=== PATIENT | female | born 1940 | race Asian ===

== ENCOUNTER 2023-09-02 07:12 | Day surgery (SDC) | payer MEDICARE, OTHER ==
[~2023-09-02] VITALS: Ht 149.9 cm; Wt 68.1 kg
[~2023-09-02 07:12] MED LIST: AMLO2.5T96 PO; ASPI81TA39 PO; CLON0.1T13 PO; ENOX60SY28 SQ; ISOS30TA92 PO; MELO-107 PO; METF-1211 PO; SIMV-260 PO; SODIUM CHLORIDE 0.9% 1,000 ML ONE; WARF2.5T10 PO
[2023-09-02] MEDS ORDERED: MIDAZOLAM HCL 2 MG/2 ML VIAL ONE (07:38)
[2023-09-02] MEDS ORDERED: FentaNYL CITRATE PF 100 MCG/2 ML VIAL ONE (07:38)
[2023-09-02] MEDS: SODIUM CHLORIDE 0.9% 1,000 ML IV ONE (08:50)
[2023-09-02 09:01] LABS: GLUCOMETER DEV NAME(LOC) SDS.; GLUCOSE,POINT OF CARE 110 MG/DL (70-110)
[2023-09-02] MEDS ORDERED: LOVA20TA73 PO (09:06)
[2023-09-02] MEDS ORDERED: FLUT16SP NASAL (09:10)
[2023-09-02] MEDS ORDERED: RANO500T27 PO (09:10)
[2023-09-02] MEDS ORDERED: FLUT1BLS19 IH (09:10)
[2023-09-02] MEDS ORDERED: MONT-35 PO (09:10)
[2023-09-02] MEDS ORDERED: SITA25 PO (09:10)
[2023-09-02] MEDS ORDERED: ASCO500 PO (09:10)
[2023-09-02] MEDS ORDERED: CALC-910 PO (09:10)
[2023-09-02] MEDS ORDERED: PRED10TA3 PO (09:11)
[2023-09-02 09:40] VITALS: PULSE 69; RESP 18; O2SAT 97
[2023-09-02] MEDS ORDERED: MethylPREDNISolone SOD SUCC 125 MG/2 ML VIAL ONE ×2 (10:34→10:43)
[2023-09-02] MEDS: MethylPREDNISolone SOD SUCC 125 MG/2 ML VIAL IVP ONE (10:44)
== END 2023-09-02 11:38 | disposition home or self-care (01) ==
LOC: SURGERY 07:12
PROVIDERS: ATTEND Internal Medicine Critical Care Medicine
DX: J38.4 Edema of larynx (principal); B37.0 Candidal stomatitis; Z79.899 Other long term (current) drug therapy; Z90.49 Acquired absence of other specified parts of digestive tract; Z98.890 Other specified postprocedural states
CPT/HCPCS: 31623; 82962; 87206; 87101; 87220; 87070; 88108; 31624; 71045; 87015; J3010; J2250; J2919; J7030